=== PATIENT | female | born 1980 | race Caucasian/White ===

== ENCOUNTER 2018-08-13 20:44 | Emergency (ER) | payer OTHER ==
[~2018-08-13] VITALS: Ht 165.1 cm; Wt 90.7 kg
[2018-08-13] MEDS ORDERED: diphenhydrAMINE 50 MG/ML VIAL IM ONE (20:50)
[2018-08-13] MEDS ORDERED: HALOPERIDOL IM 5 MG/ML VIAL IM ONE (20:50)
[2018-08-13] MEDS ORDERED: HALOPERIDOL IM 5 MG/ML VIAL ONE (20:59)
[2018-08-13] MEDS ORDERED: diphenhydrAMINE 50 MG/ML VIAL ONE (21:00)
--- NOTE | 2018-08-13 21:00 | NUR ---
PT BIBA C/O PT BEING COMBATIVE AT A [facility]. PT ARRIVED IN RESTRAINTS, COMBATIVE AND YELLING PROFANITIES UPON ARRIVAL TO [facility]. AAOX2; HERSELF, PLACE. VSS. PT IN GOWN, IN 4 POINT RESTRAINTS, IN BED; BED IN LOWER LOCKED POSITION. ER MD MADE AWARE OF PT STATUS. PMH: PTSD ( COMFIRMED) RX: UNKNOWN
--- NOTE | 2018-08-13 21:20 | NUR ---
Female manager marketing communications for [facility] RN for straight cath procedure; # 14 FR Salas catheter, immediate return of 900 ml yellow, hazy urine noted. Bedside drainage bag placed below level of bladder. Urine sample collected and sent to lab. Pt tolerated procedure well.
--- NOTE | 2018-08-13 21:51 | NUR ---
PT TO CT VIA [facility] BY [employer].
[2018-08-13 22:03] LABS: APPEARANCE,URINE CLEAR (CLEAR); BILIRUBIN,URINE NEGATIVE (NEGATIVE); BLOOD, URINE TRACE-I (NEGATIVE); COLOR,URINE YELLOW (YELLOW); LEUKOCYTE ESTERASE ,URINE NEGATIVE (NEGATIVE); NITRITE, URINE NEGATIVE (NEGATIVE); UGLUCOSE NEGATIVE (NEGATIVE)
--- NOTE | 2018-08-13 22:05 | NUR ---
PT BACK FROM CT, PT IS NO LONGER IN RESTAINTS. PT IS CALM, COOPERATIVE AND AAOX3; PERSON, PLACE, AND TIME.
[2018-08-13 22:07] LABS: BARBITURATE, URINE NEG. ng/ml (NEG <=200); BENZODIAZEPINE, URINE POS. ng/mL (NEG <=200); CANNABINOID, URINE NEG. ng/mL (NEG <=50); COCAINE, URINE NEG. ng/mL (NEG <=300); OPIATE, URINE NEG. ng/mL (NEG <=2000); PHENCYCLIDINE SCREEN,URINE NEG. ng/mL (NEG <=25)
[2018-08-13 22:13] LABS: RBC,URINE 3-10 (FEW) /HPF (0-5); WBC,URINE 0-5 (RARE) /HPF (0-5)
--- NOTE | 2018-08-13 22:27 | NUR ---
LAB AT BEDSIDE.
[2018-08-13 22:45] LABS: BASOPHILS % (AUTO) 0.4 % (0.0-2.0); EOSINOPHILS # (AUTO) 0.1 K/uL (0-0.4); EOSINOPHILS % (AUTO) 0.7 % (0.0-4.0); HEMATOCRIT 38.8 % (36-48); HEMOGLOBIN 12.6 g/dL (12.0-16.0); LYMPHOCYTES % (AUTO) 21.3 % (20.5-51.1); MEAN CORPUSCULAR HEMOGLOBIN 27 pg (27-31); MEAN CORPUSCULAR HGB CONC 33 g/dL (33-37); MEAN CORPUSCULAR VOLUME 82.6 fL (80-94); MONOCYTES # (AUTO) 0.5 K/uL (0.8-1.0); MONOCYTES % (AUTO) 4.8 % (1.7-9.3); NEUTROPHILS % (AUTO) 72.8 % (42.2-75.2); PLATELET COUNT (AUTO) 319 K/uL (140-450); RED CELL DISTRIBUTION WIDTH 14.3 % (11.6-13.7); WHITE BLOOD COUNT (AUTO) 9.6 K/uL (4.8-10.8)
[2018-08-13] MEDS ORDERED: NACL 0.9% 1,000 ML IV ONE (22:55)
[2018-08-13 22:59] LABS: ANION GAP 16.5 (8-16); CARBON DIOXIDE 23.7 mmol/L (21-32); CHLORIDE 107 mmol/L (98-107); CREATININE 0.7 mg/dL (0.6-1.3); GFR ARICAN-AMERICAN 121 mL/min (>90); GLUCOSE 101 mg/dL (74-106); POTASSIUM 3.2 mmol/L (3.5-5.1); SODIUM SERUM 144 mmol/L (136-145); UREA NITROGEN, BLOOD 7 mg/dL (7-18)
[2018-08-13 23:06] LABS: ALBUMIN 3.4 g/dL (3.4-5.0); ASPARTATE AMINOTRANSFERASE 21 U/L (15-37); TOTAL BILIRUBIN 0.3 mg/dL (0.0-1.0)
[2018-08-13 23:07] LABS: ACETAMINOPHEN < 0.5 ug/ml (10-30); SALICYLATE < 2.8 mg/dL (2.8-20.0)
[2018-08-13 23:27] LABS: CKMB RELATIVE INDEX 1.1 (0.0-2.5); CREATINE KINASE MB 2.6 ng/mL (0-3.6)
--- NOTE | 2018-08-14 00:25 | NUR ---
CALLED RANDOLPH AT [phone] REGARDING PICK-UP. 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 INFORMED RANDOLPH THAT PT WOULD BE DISCHARGED AND WAITING IN THE ER LOBBY
[2018-08-14 00:35] VITALS: BP 99/46
--- NOTE | 2018-08-14 00:35 | NUR ---
Patient discharged with v/s stable. Written and verbal after care instructions given and explained. Patient verbalized understanding. Ambulatory with steady gait. All questions addressed prior to discharge. Advised to follow up with PMD.
--- NOTE | 2018-08-17 08:09 | NUR ---
Late entry. Confirmed with RN that 1000 ml 0.9 NS IV completed at 2400.
== END 2018-08-14 00:35 | disposition home or self-care (01) ==
LOC: MED 20:44 → EDBD 20:44 → MED 08-14 00:35
DX: R40.4 Transient alteration of awareness (principal); R41.0 Disorientation, unspecified; R45.1 Restlessness and agitation
CPT/HCPCS: 36415; 70450; 80053; 80305; 81001; 81025; 82550; 82553; 85025; 93005; 96360; 96372; 99284; C1758; G0480; G0482; J1200; J1630; J7030; 96361